=== PATIENT | male | born 1945 | race Caucasian/White ===

== ENCOUNTER → 2016-07-26 | Outpatient (CLI) | payer MEDICARE, BC ==
[~2016-07-26] MED LIST: ASPIR-LOW81 MG PO; FOLIC ACID0.8 MG PO; LOFIBRA134 MG PO; LOSARTAN POTAS100 M1 PO; LOSARTAN POTASS50 M1 PO; METOPROLOL SUC100 M1 PO; NISOLDIPINE17 MG PO; SYNTHROID,LEV175 MCG PO; TIKOSYN0.5 MG PO; WARFARIN SOD5 MG PO; WARFARIN SODIU2.5 MG PO
[2016-07-26 09:38] LABS: INTERNATIONAL NORM RATIO 2.7 (2.0-3.5)
== END | disposition home or self-care (01) ==
LOC: LAB 08:43
PROVIDERS: Internal Medicine
DX: R79.1 Abnormal coagulation profile (principal)

== ENCOUNTER → 2017-06-20 | Outpatient (CLI) | payer MEDICARE, BC ==
[2017-06-20 09:57] LABS: INTERNATIONAL NORM RATIO 2.6 (2.0-3.5)
== END | disposition home or self-care (01) ==
LOC: LAB 08:34
PROVIDERS: Internal Medicine
DX: R79.1 Abnormal coagulation profile (principal)

== ENCOUNTER → 2017-08-15 | Outpatient (CLI) | payer MEDICARE ==
[2017-08-15 12:06] LABS: INTERNATIONAL NORM RATIO 2.7 (2.0-3.5)
== END | disposition home or self-care (01) ==
LOC: LAB 11:13
PROVIDERS: Internal Medicine
DX: R79.1 Abnormal coagulation profile (principal)

== ENCOUNTER → 2017-09-19 | Outpatient (CLI) | payer MEDICARE | END | disposition home or self-care (01) | LOC: LAB 10:28 | PROVIDERS: Internal Medicine | DX: R79.1 Abnormal coagulation profile (principal) ==

== ENCOUNTER → 2017-10-31 | Outpatient (CLI) | payer MEDICARE ==
[2017-10-31 09:52] LABS: BASO # 0.1 10*3/uL (0.0-0.1); EOS # 0.2 10*3/uL (0.0-0.4); EOS % 2.3 % (1.0-4.0); HEMATOCRIT 42.3 % (42.0-52.0); HEMOGLOBIN 13.7 g/dl (14.0-18.0); LYMPH # 3.2 10*3/uL (1.3-4.4); LYMPH % 34.8 % (27.0-41.0); MEAN CELL VOLUME 85.3 fl (80.0-94.0); MEAN CORPUSCULAR HGB 27.6 pg (27.0-31.0); MEAN CORPUSCULAR HGB CONC 32.4 g/dl (33.0-37.0); MEAN PLATELET VOLUME 10.3 fl (9.6-12.3); MONO # 0.9 10*3/uL (0.1-1.0); MONO % 9.1 % (3.0-9.0); NEUT # 4.9 10*3/uL (2.3-7.9); NEUT % 52.6 % (47.0-73.0); PLATELET COUNT AUTOMATED 249 10*3/uL (130-400); RED BLOOD COUNT 4.96 10*6/uL (4.50-5.90); RED CELL DISTRI WIDTH 15.1 % (0-14.5); WHITE BLOOD COUNT 9.3 10*3/uL (4.8-10.8)
[2017-10-31 10:21] LABS: ALBUMIN 3.9 gm/dl (3.1-4.5); BUN 39 mg/dl (7-24); CHLORIDE 103 mmol/L (98-107); CHOLESTEROL 207 mg/dL (<200); CREATININE 1.31 mg/dL (0.70-1.30); POTASSIUM 4.2 mmol/L (3.5-5.1); SGOT/AST 38 IU/L (3-35); SGPT/ALT 58 U/L (12-78); SODIUM 136 mmol/L (136-145); TRIGLYCERIDES 302 mg/dl (<150); VLDL CHOLESTEROL 60 mg/dL (6-40)
[2017-10-31 10:27] LABS: ALKALINE PHOSPHATASE 75 U/L (45-117); FREE T4 1.23 ng/dl (0.76-1.46); HDL CHOLESTEROL 31 mg/dl (40-60); LDL CHOLESTEROL 116 mg/dL (9-159); THYROID STIM HORMONE (HS) 0.055 uIU/ml (0.358-4.75); TOTAL PROTEIN 7.5 gm/dL (6.4-8.2)
[2017-10-31 10:30] LABS: INTERNATIONAL NORM RATIO 2.7 (2.0-3.5)
[2017-10-31 11:00] LABS: VITAMIN D, 25-HYDROXY 23.4 ng/mL (30-100)
== END | disposition home or self-care (01) ==
LOC: LAB 09:11
PROVIDERS: Internal Medicine
DX: R53.81 Other malaise (principal); E55.9 Vitamin D deficiency, unspecified; E78.2 Mixed hyperlipidemia; E11.9 Type 2 diabetes mellitus without complications; Z13.1 Encounter for screening for diabetes mellitus; Z13.21 Encounter for screening for nutritional disorder; Z13.220 Encounter for screening for lipoid disorders; R79.1 Abnormal coagulation profile

== ENCOUNTER → 2018-01-11 | Outpatient (CLI) | payer MEDICARE ==
[2018-01-11 09:57] LABS: INTERNATIONAL NORM RATIO 3.7 (2.0-3.5)
== END | disposition home or self-care (01) ==
LOC: LAB 08:52
PROVIDERS: Internal Medicine
DX: R79.1 Abnormal coagulation profile (principal)

== ENCOUNTER → 2018-01-16 | Outpatient (CLI) | payer MEDICARE ==
[2018-01-16 09:25] LABS: INTERNATIONAL NORM RATIO 3.6 (2.0-3.5)
== END ==
LOC: LAB 08:20
PROVIDERS: Internal Medicine
DX: R79.1 Abnormal coagulation profile (principal)

== ENCOUNTER → 2018-02-27 | Outpatient (CLI) | payer MEDICARE ==
[2018-02-27 09:54] LABS: INTERNATIONAL NORM RATIO 2.4 (2.0-3.5)
== END | disposition home or self-care (01) ==
LOC: LAB 08:38
PROVIDERS: Internal Medicine
DX: R79.1 Abnormal coagulation profile (principal)

== ENCOUNTER → 2018-03-27 | Outpatient (CLI) | payer MEDICARE ==
[2018-03-27 09:59] LABS: INTERNATIONAL NORM RATIO 2.9 (2.0-3.5)
== END | disposition home or self-care (01) ==
LOC: LAB 08:56
PROVIDERS: Internal Medicine
DX: R79.1 Abnormal coagulation profile (principal)

== ENCOUNTER → 2018-04-26 | Outpatient (CLI) | payer MEDICARE ==
[2018-04-26 10:32] LABS: INTERNATIONAL NORM RATIO 2.2 (2.0-3.5)
== END | disposition home or self-care (01) ==
LOC: LAB 09:21
PROVIDERS: Internal Medicine
DX: I48.2 Chronic atrial fibrillation (principal)

== ENCOUNTER → 2018-05-01 | Outpatient (CLI) | payer MEDICARE ==
[2018-05-01 07:54] LABS: BASO # 0.1 10*3/uL (0.0-0.1); BASO % 1.1 % (0.0-1.0); EOS # 0.2 10*3/uL (0.0-0.4); EOS % 1.5 % (1.0-4.0); HEMATOCRIT 42.6 % (42.0-52.0); HEMOGLOBIN 13.8 g/dl (14.0-18.0); LYMPH # 4.6 10*3/uL (1.3-4.4); LYMPH % 43.1 % (27.0-41.0); MEAN CELL VOLUME 87.1 fl (80.0-94.0); MEAN CORPUSCULAR HGB 28.2 pg (27.0-31.0); MEAN CORPUSCULAR HGB CONC 32.4 g/dl (33.0-37.0); MEAN PLATELET VOLUME 10.3 fl (9.6-12.3); MONO # 0.9 10*3/uL (0.1-1.0); MONO % 8.8 % (3.0-9.0); NEUT # 4.8 10*3/uL (2.3-7.9); NEUT % 45.1 % (47.0-73.0); PLATELET COUNT AUTOMATED 253 10*3/uL (130-400); RED BLOOD COUNT 4.89 10*6/uL (4.50-5.90); RED CELL DISTRI WIDTH 15.1 % (0-14.5); WHITE BLOOD COUNT 10.7 10*3/uL (4.8-10.8)
[2018-05-01 08:22] LABS: ALBUMIN 3.8 gm/dl (3.1-4.5); ALKALINE PHOSPHATASE 61 U/L (45-117); BUN 40 mg/dl (7-24); CHLORIDE 108 mmol/L (98-107); CHOLESTEROL 180 mg/dL (<200); CREATININE 1.34 mg/dL (0.70-1.30); FREE T4 1.34 ng/dl (0.76-1.46); HDL CHOLESTEROL 37 mg/dl (40-60); LDL CHOLESTEROL 105 mg/dL (9-159); POTASSIUM 4.3 mmol/L (3.5-5.1); SGOT/AST 28 IU/L (3-35); SGPT/ALT 38 U/L (12-78); SODIUM 140 mmol/L (136-145); TOTAL PROTEIN 7.7 gm/dL (6.4-8.2); TRIGLYCERIDES 192 mg/dl (<150); VLDL CHOLESTEROL 38 mg/dL (6-40)
[2018-05-01 08:27] LABS: THYROID STIM HORMONE (HS) 0.116 uIU/ml (0.358-4.75)
[2018-05-01 09:02] LABS: VITAMIN D, 25-HYDROXY 40.6 ng/mL (30-100)
== END | disposition home or self-care (01) ==
LOC: LAB 07:16
PROVIDERS: Internal Medicine
DX: Z13.1 Encounter for screening for diabetes mellitus (principal); Z13.21 Encounter for screening for nutritional disorder; Z13.220 Encounter for screening for lipoid disorders; I48.2 Chronic atrial fibrillation; E55.9 Vitamin D deficiency, unspecified; R79.1 Abnormal coagulation profile; E78.2 Mixed hyperlipidemia; E11.9 Type 2 diabetes mellitus without complications

== ENCOUNTER → 2018-08-28 | Outpatient (CLI) | payer MEDICARE ==
[2018-08-28 09:17] LABS: INTERNATIONAL NORM RATIO 3.7 (2.0-3.5)
== END | disposition home or self-care (01) ==
LOC: LAB 08:42
PROVIDERS: Internal Medicine
DX: I48.2 Chronic atrial fibrillation (principal); E11.9 Type 2 diabetes mellitus without complications

== ENCOUNTER → 2018-10-30 | Outpatient (CLI) | payer MEDICARE | END | disposition home or self-care (01) | LOC: LAB 08:12 | PROVIDERS: Internal Medicine | DX: I48.2 Chronic atrial fibrillation (principal) ==

== ENCOUNTER → 2019-02-26 | Outpatient (CLI) | payer MEDICARE | END | disposition home or self-care (01) | LOC: LAB 07:47 | PROVIDERS: Internal Medicine | DX: I48.2 Chronic atrial fibrillation (principal) ==

== ENCOUNTER → 2019-05-21 | Outpatient (CLI) | payer MEDICARE | END | disposition home or self-care (01) | LOC: LAB 10:03 | PROVIDERS: Internal Medicine | DX: I48.20 Chronic atrial fibrillation, unspecified (principal) ==

== ENCOUNTER → 2019-07-24 | Outpatient (CLI) | payer MEDICARE ==
[2019-07-24 07:27] LABS: INTERNATIONAL NORM RATIO 2.1 (2.0-3.5)
== END | disposition home or self-care (01) ==
LOC: LAB 06:46
PROVIDERS: Internal Medicine
DX: Z79.01 Long term (current) use of anticoagulants (principal)

== ENCOUNTER → 2019-08-01 | Outpatient (CLI) | payer MEDICARE ==
[2019-08-01 07:54] LABS: BASO # 0.1 10*3/uL (0.0-0.1); BASO % 0.8 % (0.0-1.0); EOS # 0.2 10*3/uL (0.0-0.4); EOS % 2.2 % (1.0-4.0); HEMATOCRIT 44.3 % (42.0-52.0); HEMOGLOBIN 13.7 g/dl (14.0-18.0); LYMPH # 4.4 10*3/uL (1.3-4.4); LYMPH % 44.5 % (27.0-41.0); MEAN CELL VOLUME 89.7 fl (80.0-94.0); MEAN CORPUSCULAR HGB 27.7 pg (27.0-31.0); MEAN CORPUSCULAR HGB CONC 30.9 g/dl (33.0-37.0); MEAN PLATELET VOLUME 9.9 fl (9.6-12.3); MONO % 10.3 % (3.0-9.0); NEUT # 4.1 10*3/uL (2.3-7.9); NEUT % 41.8 % (47.0-73.0); PLATELET COUNT AUTOMATED 240 10*3/uL (130-400); RED BLOOD COUNT 4.94 10*6/uL (4.50-5.90); RED CELL DISTRI WIDTH 14.6 % (0-14.5); WHITE BLOOD COUNT 9.9 10*3/uL (4.8-10.8)
[2019-08-01 08:27] LABS: ALBUMIN 3.7 gm/dl (3.1-4.5); ALKALINE PHOSPHATASE 77 U/L (45-117); BUN 29 mg/dl (7-24); CHLORIDE 109 mmol/L (98-107); CHOLESTEROL 196 mg/dL (<200); CREATININE 1.37 mg/dL (0.70-1.30); FREE T4 1.15 ng/dl (0.76-1.46); HDL CHOLESTEROL 38 mg/dl (40-60); LDL CHOLESTEROL 104 mg/dL (9-159); POTASSIUM 4.3 mmol/L (3.5-5.1); SGOT/AST 26 IU/L (3-35); SGPT/ALT 42 U/L (12-78); SODIUM 141 mmol/L (136-145); TOTAL PROTEIN 7.3 gm/dL (6.4-8.2); TRIGLYCERIDES 268 mg/dl (<150); VLDL CHOLESTEROL 54 mg/dL (6-40)
[2019-08-01 08:32] LABS: THYROID STIM HORMONE (HS) 0.054 uIU/ml (0.358-4.75)
[2019-08-01 10:34] LABS: VITAMIN D, 25-HYDROXY 34.3 ng/mL (30-100)
== END | disposition home or self-care (01) ==
LOC: LAB 07:35
PROVIDERS: Internal Medicine
DX: I10 Essential (primary) hypertension (principal); E11.9 Type 2 diabetes mellitus without complications; E55.9 Vitamin D deficiency, unspecified; E03.9 Hypothyroidism, unspecified

== ENCOUNTER → 2020-01-27 | Outpatient (CLI) | payer MEDICARE ==
[2020-01-27 09:54] LABS: INTERNATIONAL NORM RATIO 2.4 (2.0-3.5)
== END | disposition home or self-care (01) ==
LOC: LAB 08:56
PROVIDERS: Internal Medicine
DX: Z79.01 Long term (current) use of anticoagulants (principal)

== ENCOUNTER → 2020-03-26 | Outpatient (CLI) | payer MEDICARE ==
[2020-03-26 09:57] LABS: BASO # 0.1 10*3/uL (0.0-0.1); BASO % 0.8 % (0.0-1.0); EOS # 0.2 10*3/uL (0.0-0.4); EOS % 2.3 % (1.0-4.0); HEMATOCRIT 43.6 % (42.0-52.0); LYMPH # 3.5 10*3/uL (1.3-4.4); LYMPH % 36.7 % (27.0-41.0); MEAN CORPUSCULAR HGB 27.3 pg (27.0-31.0); MEAN CORPUSCULAR HGB CONC 30.7 g/dl (33.0-37.0); MEAN PLATELET VOLUME 10.3 fl (9.6-12.3); MONO % 10.7 % (3.0-9.0); NEUT # 4.6 10*3/uL (2.3-7.9); NEUT % 49.2 % (47.0-73.0); PLATELET COUNT AUTOMATED 254 10*3/uL (130-400); RED CELL DISTRI WIDTH 14.9 % (0-14.5); WHITE BLOOD COUNT 9.4 10*3/uL (4.8-10.8)
[2020-03-26 10:16] LABS: ALBUMIN 3.8 gm/dl (3.1-4.5); CREATININE 1.51 mg/dL (0.70-1.30); FREE T4 1.38 ng/dl (0.76-1.46); POTASSIUM 4.5 mmol/L (3.5-5.1)
[2020-03-26 10:20] LABS: THYROID STIM HORMONE (HS) 0.036 uIU/ml (0.358-4.75)
[2020-03-26 10:34] LABS: VITAMIN D, 25-HYDROXY 41.5 ng/mL (30-100)
== END | disposition home or self-care (01) ==
LOC: LAB 08:50
PROVIDERS: ATTEND Internal Medicine
DX: I10 Essential (primary) hypertension (principal); E11.9 Type 2 diabetes mellitus without complications; E03.9 Hypothyroidism, unspecified; E78.2 Mixed hyperlipidemia; E55.9 Vitamin D deficiency, unspecified; Z00.00 Encounter for general adult medical examination without abnormal findings; Z79.01 Long term (current) use of anticoagulants

== ENCOUNTER → 2020-04-16 | Outpatient (CLI) | payer MEDICARE | END | disposition home or self-care (01) | LOC: US 10:14 | PROVIDERS: ATTEND Internal Medicine | DX: N28.1 Cyst of kidney, acquired (principal) ==

== ENCOUNTER → 2021-01-04 | Outpatient (CLI) | payer MEDICARE ==
[2021-01-04 10:10] LABS: INTERNATIONAL NORM RATIO 2.5 (2.0-3.5)
== END | disposition home or self-care (01) ==
LOC: LAB 09:10
PROVIDERS: ATTEND Internal Medicine
DX: I48.21 Permanent atrial fibrillation (principal)

== ENCOUNTER → 2021-03-11 | Outpatient (CLI) | payer MEDICARE ==
[2021-03-11 08:52] LABS: BASO # 0.1 10*3/uL (0.0-0.1); BASO % 0.7 % (0.0-1.0); EOS # 0.3 10*3/uL (0.0-0.4); EOS % 2.4 % (1.0-4.0); LYMPH # 4.1 10*3/uL (1.3-4.4); LYMPH % 37.5 % (27.0-41.0); MEAN CORPUSCULAR HGB CONC 32.2 g/dl (33.0-37.0); MEAN PLATELET VOLUME 10.1 fl (9.6-12.3); MONO # 1.1 10*3/uL (0.1-1.0); MONO % 9.5 % (3.0-9.0); NEUT # 5.5 10*3/uL (2.3-7.9); NEUT % 49.5 % (47.0-73.0); PLATELET COUNT AUTOMATED 245 10*3/uL (130-400); RED BLOOD COUNT 4.71 10*6/uL (4.50-5.90); RED CELL DISTRI WIDTH 14.6 % (0-14.5)
[2021-03-11 09:06] LABS: INTERNATIONAL NORM RATIO 2.6 (2.0-3.5)
[2021-03-11 09:27] LABS: ALBUMIN 3.6 gm/dl (3.1-4.5); CREATININE 1.53 mg/dL (0.70-1.30); FREE T4 1.28 ng/dl (0.76-1.46); POTASSIUM 4.1 mmol/L (3.5-5.1); TOTAL PROTEIN 7.7 gm/dL (6.4-8.2)
[2021-03-11 09:42] LABS: THYROID STIM HORMONE (HS) 0.104 uIU/ml (0.358-4.75)
[2021-03-11 09:57] LABS: VITAMIN D, 25-HYDROXY 43.9 ng/mL (30-100)
== END | disposition home or self-care (01) ==
LOC: LAB 08:33
PROVIDERS: ATTEND Internal Medicine
DX: Z12.5 Encounter for screening for malignant neoplasm of prostate (principal); I48.21 Permanent atrial fibrillation; I10 Essential (primary) hypertension; E11.9 Type 2 diabetes mellitus without complications; E03.9 Hypothyroidism, unspecified; E55.9 Vitamin D deficiency, unspecified; E78.2 Mixed hyperlipidemia

== ENCOUNTER → 2021-08-30 | Outpatient (CLI) | payer MEDICARE ==
[2021-08-30 13:50] LABS: INTERNATIONAL NORM RATIO 2.9 (2.0-3.5)
== END | disposition home or self-care (01) ==
LOC: LAB 13:23
PROVIDERS: ATTEND Internal Medicine
DX: I48.21 Permanent atrial fibrillation (principal)

== ENCOUNTER → 2021-09-21 | Outpatient (CLI) | payer MEDICARE | END | disposition home or self-care (01) | LOC: RAD 11:25 | PROVIDERS: ATTEND Internal Medicine | DX: R06.02 Shortness of breath (principal); M51.34 Other intervertebral disc degeneration, thoracic region ==

== ENCOUNTER → 2021-09-28 | Outpatient (CLI) | payer MEDICARE | END | disposition home or self-care (01) | LOC: LAB 13:05 | PROVIDERS: ATTEND Internal Medicine | DX: I48.21 Permanent atrial fibrillation (principal) ==

== ENCOUNTER → 2021-09-30 | Outpatient (CLI) | payer MEDICARE ==
[2021-09-30 10:43] LABS: INTERNATIONAL NORM RATIO 3.3 (2.0-3.5)
== END | disposition home or self-care (01) ==
LOC: LAB 10:13
PROVIDERS: ATTEND Internal Medicine
DX: I48.21 Permanent atrial fibrillation (principal)

== ENCOUNTER → 2021-10-14 | Outpatient (CLI) | payer MEDICARE ==
[2021-10-14 12:15] LABS: INTERNATIONAL NORM RATIO 2.8 (2.0-3.5)
== END | disposition home or self-care (01) ==
LOC: LAB 11:42
PROVIDERS: ATTEND Internal Medicine
DX: I48.21 Permanent atrial fibrillation (principal)

== ENCOUNTER → 2021-12-07 | Outpatient (CLI) | payer MEDICARE ==
[2021-12-07 10:31] LABS: INTERNATIONAL NORM RATIO 2.4 (2.0-3.5)
== END ==
LOC: LAB 10:04
PROVIDERS: ATTEND Internal Medicine
DX: I48.21 Permanent atrial fibrillation (principal)

== ENCOUNTER → 2022-01-25 | Outpatient (CLI) | payer MEDICARE ==
[2022-01-25 12:25] LABS: INTERNATIONAL NORM RATIO 2.5 (2.0-3.5)
== END | disposition home or self-care (01) ==
LOC: LAB 11:52
PROVIDERS: ATTEND Internal Medicine
DX: I48.21 Permanent atrial fibrillation (principal)

== ENCOUNTER → 2022-02-04 | Outpatient (CLI) | payer MEDICARE ==
[2022-02-04 10:14] LABS: BASO # 0.1 10*3/uL (0.0-0.1); BASO % 0.7 % (0.0-1.0); EOS # 0.2 10*3/uL (0.0-0.4); EOS % 1.8 % (1.0-4.0); HEMATOCRIT 40.2 % (42.0-52.0); LYMPH # 3.5 10*3/uL (1.3-4.4); LYMPH % 37.2 % (27.0-41.0); MEAN CELL VOLUME 91.2 fl (80.0-94.0); MEAN CORPUSCULAR HGB 29.3 pg (27.0-31.0); MEAN CORPUSCULAR HGB CONC 32.1 g/dl (33.0-37.0); MONO # 0.8 10*3/uL (0.1-1.0); MONO % 8.6 % (3.0-9.0); NEUT # 4.9 10*3/uL (2.3-7.9); NEUT % 51.4 % (47.0-73.0); PLATELET COUNT AUTOMATED 232 10*3/uL (130-400); RED BLOOD COUNT 4.41 10*6/uL (4.50-5.90); RED CELL DISTRI WIDTH 15.2 % (0-14.5); WHITE BLOOD COUNT 9.5 10*3/uL (4.8-10.8)
[2022-02-04 10:32] LABS: CREATININE 1.53 mg/dL (0.70-1.30); POTASSIUM 4.9 mmol/L (3.5-5.1); TOTAL PROTEIN 7.8 gm/dL (6.4-8.2)
[2022-02-04 10:37] LABS: FREE T4 1.55 ng/dl (0.76-1.46); THYROID STIM HORMONE (HS) 0.038 uIU/ml (0.358-4.75)
[2022-02-04 11:33] LABS: VITAMIN D, 25-HYDROXY 39.5 ng/mL (30-100)
== END ==
LOC: LAB 09:56
PROVIDERS: ATTEND Internal Medicine
DX: Z12.5 Encounter for screening for malignant neoplasm of prostate (principal); Z13.89 Encounter for screening for other disorder; Z13.0 Encounter for screening for diseases of the blood and blood-forming organs and certain disorders involving the immune mechanism; E03.9 Hypothyroidism, unspecified; E11.9 Type 2 diabetes mellitus without complications; E55.9 Vitamin D deficiency, unspecified; Z13.21 Encounter for screening for nutritional disorder; Z13.220 Encounter for screening for lipoid disorders; Z13.228 Encounter for screening for other metabolic disorders; Z13.29 Encounter for screening for other suspected endocrine disorder; Z13.6 Encounter for screening for cardiovascular disorders; Z13.9 Encounter for screening, unspecified

== ENCOUNTER 2022-03-01 12:07 | Inpatient (IN) | payer MEDICARE ==
[~2022-03-01] VITALS: Ht 154.9 cm; Wt 113.9 kg
[2022-03-01 12:16] VITALS: BP 113/66
[2022-03-01 12:48] LABS: BASO # 0.1 10*3/uL (0.0-0.1); BASO % 0.7 % (0.0-1.0); EOS # 0.1 10*3/uL (0.0-0.4); EOS % 1.5 % (1.0-4.0); HEMATOCRIT 46.2 % (42.0-52.0); LYMPH # 3.3 10*3/uL (1.3-4.4); LYMPH % 37.1 % (27.0-41.0); MEAN CELL VOLUME 86.7 fl (80.0-94.0); MEAN CORPUSCULAR HGB 28.7 pg (27.0-31.0); MEAN CORPUSCULAR HGB CONC 33.1 g/dl (33.0-37.0); MEAN PLATELET VOLUME 10.5 fl (9.6-12.3); MONO % 11.3 % (3.0-9.0); NEUT # 4.3 10*3/uL (2.3-7.9); NEUT % 49.1 % (47.0-73.0); PLATELET COUNT AUTOMATED 289 10*3/uL (130-400); RED BLOOD COUNT 5.33 10*6/uL (4.50-5.90); RED CELL DISTRI WIDTH 14.7 % (0-14.5); WHITE BLOOD COUNT 8.8 10*3/uL (4.8-10.8)
[2022-03-01 12:59] LABS: ACT PARTIAL THROMBO TIME 29.3 SECONDS (20.0-32.1); INTERNATIONAL NORM RATIO 1.2 (2.0-3.5)
[2022-03-01] MEDS ORDERED: Metolazone5 MG PO (13:03)
[2022-03-01] MEDS ORDERED: ELIQUIS5 M1 PO (13:03)
[2022-03-01] MEDS ORDERED: TORSEMIDE20 MG PO (13:03)
[2022-03-01] MEDS ORDERED: GLIPIZIDE5 MG PO (13:04)
[2022-03-01] MEDS ORDERED: ENTRESTO 24 MG1 EACH PO (13:05)
[2022-03-01 13:21] LABS: CREATININE 2.82 mg/dL (0.70-1.30); POTASSIUM 3.5 mmol/L (3.5-5.1); TOTAL PROTEIN 8.4 gm/dL (6.4-8.2)
[2022-03-01 14:02] LABS: BILIRUBIN Negative (Negative); BLOOD Negative (Negative); CLARITY Clear (Clear); COLOR Yellow (Yellow); GLUCOSE Negative (Negative); KETONE Negative (Negative); LEUKO ESTERASE Negative (Negative); NITRITE Negative (Negative); PH 5.5 (4.5-8.0); UROBILINOGEN 0.2 E.U./dl (0.0-1.0)
[2022-03-01 14:11] LABS: MUCOUS 1+; RBC 0-2 rbc/hpf (0-2)
[2022-03-01 16:47] VITALS: BP 130/79
[2022-03-01 20:00] VITALS: BP 131/79
[2022-03-02] VITALS: BP 109/64
[2022-03-02 06:29] LABS: BASO # 0.1 10*3/uL (0.0-0.1); BASO % 0.8 % (0.0-1.0); EOS # 0.2 10*3/uL (0.0-0.4); EOS % 2.6 % (1.0-4.0); HEMATOCRIT 44.9 % (42.0-52.0); LYMPH # 2.9 10*3/uL (1.3-4.4); LYMPH % 33.1 % (27.0-41.0); MEAN CELL VOLUME 87.7 fl (80.0-94.0); MEAN CORPUSCULAR HGB 28.3 pg (27.0-31.0); MEAN CORPUSCULAR HGB CONC 32.3 g/dl (33.0-37.0); MEAN PLATELET VOLUME 10.9 fl (9.6-12.3); MONO # 1.2 10*3/uL (0.1-1.0); MONO % 13.3 % (3.0-9.0); NEUT # 4.4 10*3/uL (2.3-7.9); NEUT % 49.9 % (47.0-73.0); PLATELET COUNT AUTOMATED 255 10*3/uL (130-400); RED BLOOD COUNT 5.12 10*6/uL (4.50-5.90); RED CELL DISTRI WIDTH 14.7 % (0-14.5); WHITE BLOOD COUNT 8.8 10*3/uL (4.8-10.8)
[2022-03-02 06:45] LABS: CREATININE 2.28 mg/dL (0.70-1.30); TOTAL PROTEIN 7.6 gm/dL (6.4-8.2)
[2022-03-02 08:00] VITALS: BP 134/74
[2022-03-02 12:00] VITALS: BP 99/61
[2022-03-02 20:00] VITALS: BP 129/68
[2022-03-03] VITALS: BP 114/51
[2022-03-03 08:00] VITALS: BP 110/64
[2022-03-03 08:11] LABS: CREATININE 1.9 mg/dL (0.70-1.30)
[2022-03-03 12:00] VITALS: BP 114/70
[2022-03-03 16:00] VITALS: BP 121/71
[2022-03-03 20:00] VITALS: BP 121/63
[2022-03-04] VITALS: BP 108/47; BP 110/58
[2022-03-04 05:47] LABS: CREATININE 1.66 mg/dL (0.70-1.30)
[2022-03-04] MEDS ORDERED: SOAANZ20 MG PO (07:01)
[2022-03-04] MEDS ORDERED: ALDACTONE25 M1 PO (07:01)
[2022-03-04] MEDS ORDERED: IMDUR SA30 MG PO (07:01)
[2022-03-04] MEDS ORDERED: METOPROLOL SUCC25 M2 PO (07:01)
[2022-03-04 08:00] VITALS: BP 120/67
== END 2022-03-04 09:44 | disposition home or self-care (01) | DRG 640 ==
LOC: ED 12:07 → EDHOLD 13:48 → 5E 13:48
PROVIDERS: Emergency Medicine; ADMIT Internal Medicine; ATTEND Internal Medicine
DX: E87.6 Hypokalemia (principal); N17.0 Acute kidney failure with tubular necrosis; I48.21 Permanent atrial fibrillation; I13.0 Hypertensive heart and chronic kidney disease with heart failure and stage 1 through stage 4 chronic kidney disease, or unspecified chronic kidney disease; I42.9 Cardiomyopathy, unspecified; I50.20 Unspecified systolic (congestive) heart failure; E86.0 Dehydration; Z96.653 Presence of artificial knee joint, bilateral; E03.9 Hypothyroidism, unspecified; M19.90 Unspecified osteoarthritis, unspecified site; E87.8 Other disorders of electrolyte and fluid balance, not elsewhere classified; T50.2X5A Adverse effect of carbonic-anhydrase inhibitors, benzothiadiazides and other diuretics, initial encounter; E11.22 Type 2 diabetes mellitus with diabetic chronic kidney disease; Z79.01 Long term (current) use of anticoagulants; Z88.5 Allergy status to narcotic agent; Z88.6 Allergy status to analgesic agent; Z79.899 Other long term (current) drug therapy; Z88.8 Allergy status to other drugs, medicaments and biological substances; Z95.810 Presence of automatic (implantable) cardiac defibrillator; Y92.89 Other specified places as the place of occurrence of the external cause; I11.0 Hypertensive heart disease with heart failure

== ENCOUNTER → 2022-03-08 | Outpatient (CLI) | payer MEDICARE ==
[~2022-03-08] MED LIST changes: +ALDACTONE25 M1 PO; +ELIQUIS5 M1 PO; +ENTRESTO 24 MG1 EACH PO; +GLIPIZIDE5 MG PO; +IMDUR SA30 MG PO; +METOPROLOL SUCC25 M2 PO; +Metolazone5 MG PO; +SOAANZ20 MG PO; +TORSEMIDE20 MG PO
[2022-03-08 12:34] LABS: CREATININE 2.72 mg/dL (0.70-1.30)
== END | disposition home or self-care (01) ==
LOC: LAB 11:50
PROVIDERS: ATTEND Internal Medicine
DX: N17.9 Acute kidney failure, unspecified (principal)

== ENCOUNTER → 2022-03-14 | Outpatient (CLI) | payer MEDICARE ==
[2022-03-14 12:09] LABS: BASO # 0.1 10*3/uL (0.0-0.1); BASO % 0.7 % (0.0-1.0); EOS # 0.2 10*3/uL (0.0-0.4); EOS % 1.9 % (1.0-4.0); HEMATOCRIT 43.1 % (42.0-52.0); LYMPH # 3.1 10*3/uL (1.3-4.4); LYMPH % 32.4 % (27.0-41.0); MEAN CELL VOLUME 89.2 fl (80.0-94.0); MEAN CORPUSCULAR HGB CONC 32.5 g/dl (33.0-37.0); MONO % 10.6 % (3.0-9.0); NEUT # 5.2 10*3/uL (2.3-7.9); PLATELET COUNT AUTOMATED 199 10*3/uL (130-400); RED BLOOD COUNT 4.83 10*6/uL (4.50-5.90); RED CELL DISTRI WIDTH 14.6 % (0-14.5); WHITE BLOOD COUNT 9.6 10*3/uL (4.8-10.8)
[2022-03-14 12:32] LABS: CREATININE 1.75 mg/dL (0.70-1.30); FREE T4 1.47 ng/dl (0.76-1.46); POTASSIUM 3.7 mmol/L (3.5-5.1); TOTAL PROTEIN 8.1 gm/dL (6.4-8.2)
[2022-03-14 12:37] LABS: THYROID STIM HORMONE (HS) 0.057 uIU/ml (0.358-4.75)
[2022-03-14 12:55] LABS: VITAMIN D, 25-HYDROXY 31.2 ng/mL (30-100)
== END | disposition home or self-care (01) ==
LOC: LAB 10:49
PROVIDERS: ATTEND Internal Medicine
DX: E55.9 Vitamin D deficiency, unspecified (principal); D51.9 Vitamin B12 deficiency anemia, unspecified; E03.9 Hypothyroidism, unspecified; R53.81 Other malaise; R79.89 Other specified abnormal findings of blood chemistry; D52.9 Folate deficiency anemia, unspecified; Z13.0 Encounter for screening for diseases of the blood and blood-forming organs and certain disorders involving the immune mechanism; Z13.21 Encounter for screening for nutritional disorder; Z13.220 Encounter for screening for lipoid disorders; Z13.228 Encounter for screening for other metabolic disorders; Z13.6 Encounter for screening for cardiovascular disorders; Z13.89 Encounter for screening for other disorder

== ENCOUNTER → 2022-05-12 | Outpatient (CLI) | payer MEDICARE | END | disposition home or self-care (01) | LOC: US 00:13 | PROVIDERS: ATTEND Internal Medicine | DX: I65.23 Occlusion and stenosis of bilateral carotid arteries (principal) ==

== ENCOUNTER → 2022-10-13 | Outpatient (CLI) | payer MEDICARE ==
[2022-10-13 09:18] LABS: BASO # 0.1 10*3/uL (0.0-0.1); BASO % 0.8 % (0.0-1.0); EOS # 0.2 10*3/uL (0.0-0.4); EOS % 2.2 % (1.0-4.0); HEMATOCRIT 43.6 % (42.0-52.0); LYMPH # 3.4 10*3/uL (1.3-4.4); LYMPH % 36.7 % (27.0-41.0); MEAN CELL VOLUME 87.6 fl (80.0-94.0); MEAN CORPUSCULAR HGB 29.3 pg (27.0-31.0); MEAN CORPUSCULAR HGB CONC 33.5 g/dl (33.0-37.0); MONO # 0.8 10*3/uL (0.1-1.0); NEUT # 4.7 10*3/uL (2.3-7.9); NEUT % 50.9 % (47.0-73.0); PLATELET COUNT AUTOMATED 254 10*3/uL (130-400); RED BLOOD COUNT 4.98 10*6/uL (4.50-5.90); RED CELL DISTRI WIDTH 14.6 % (0-14.5); WHITE BLOOD COUNT 9.2 10*3/uL (4.8-10.8)
[2022-10-13 09:28] LABS: ACT PARTIAL THROMBO TIME 31.2 SECONDS (20.0-32.1); INTERNATIONAL NORM RATIO 1.1 (2.0-3.5)
[2022-10-13 09:54] LABS: POTASSIUM 4.1 mmol/L (3.4-5.1); TOTAL PROTEIN 7.7 gm/dL (6.0-8.0)
== END | disposition home or self-care (01) ==
LOC: LAB 08:35
PROVIDERS: ATTEND Urology
DX: Z01.818 Encounter for other preprocedural examination (principal); I51.7 Cardiomegaly

== ENCOUNTER → 2022-11-17 | Outpatient (CLI) | payer MEDICARE | END | disposition home or self-care (01) | LOC: LAB 09:52 | PROVIDERS: ATTEND Urology | DX: Z12.5 Encounter for screening for malignant neoplasm of prostate (principal); R53.83 Other fatigue ==

== ENCOUNTER → 2022-12-06 | Outpatient (CLI) | payer MEDICARE | END | disposition home or self-care (01) | LOC: US 02:21 | PROVIDERS: ATTEND Urology | DX: N28.1 Cyst of kidney, acquired (principal); N28.89 Other specified disorders of kidney and ureter; I10 Essential (primary) hypertension ==

== ENCOUNTER → 2022-12-12 | Outpatient (CLI) | payer MEDICARE ==
[~2022-12-12] MED LIST changes: +GLIPIZIDE10 M2 PO; +KAPSPARGO SPRI100 MG PO; +LEVOTHYROXINE200 MC2 PO
== END | disposition home or self-care (01) ==
LOC: RAD 10:57
PROVIDERS: ATTEND Internal Medicine
DX: R05.9 Cough, unspecified (principal); I51.7 Cardiomegaly; Z95.810 Presence of automatic (implantable) cardiac defibrillator

== ENCOUNTER 2022-12-15 12:42 | Inpatient (IN) | payer MEDICARE ==
[~2022-12-15] VITALS: Ht 180.3 cm; Wt 125.0 kg
[~2022-12-15 12:42] MED LIST changes: -GLIPIZIDE10 M2 PO; -KAPSPARGO SPRI100 MG PO; -LEVOTHYROXINE200 MC2 PO
[2022-12-15 13:02] VITALS: BP 124/66
[2022-12-15 16:13] LABS: BASO # 0.1 10*3/uL (0.0-0.1); BASO % 0.6 % (0.0-1.0); EOS # 0.3 10*3/uL (0.0-0.4); EOS % 2.3 % (1.0-4.0); HEMATOCRIT 42.8 % (42.0-52.0); LYMPH # 3.7 10*3/uL (1.3-4.4); LYMPH % 31.7 % (27.0-41.0); MEAN CELL VOLUME 87.9 fl (80.0-94.0); MEAN CORPUSCULAR HGB 28.3 pg (27.0-31.0); MEAN CORPUSCULAR HGB CONC 32.2 g/dl (33.0-37.0); MEAN PLATELET VOLUME 9.5 fl (9.6-12.3); MONO # 1.1 10*3/uL (0.1-1.0); NEUT # 6.6 10*3/uL (2.3-7.9); PLATELET COUNT AUTOMATED 304 10*3/uL (130-400); RED BLOOD COUNT 4.87 10*6/uL (4.50-5.90); RED CELL DISTRI WIDTH 14.8 % (0-14.5); WHITE BLOOD COUNT 11.7 10*3/uL (4.8-10.8)
[2022-12-15 16:24] LABS: ACT PARTIAL THROMBO TIME 31.9 SECONDS (20.0-32.1); INTERNATIONAL NORM RATIO 1.1 (2.0-3.5)
[2022-12-15 16:41] LABS: POTASSIUM 3.8 mmol/L (3.4-5.1); TOTAL PROTEIN 7.9 gm/dL (6.0-8.0)
[2022-12-15] MEDS ORDERED: GLIPIZIDE10 M2 PO (19:05)
[2022-12-15] MEDS ORDERED: LEVOTHYROXINE200 MC2 PO (19:05)
[2022-12-15] MEDS ORDERED: ENTRESTO 24 MG1 EACH PO (19:05)
[2022-12-15] MEDS ORDERED: KAPSPARGO SPRI100 MG PO (19:06)
[2022-12-15 22:51] VITALS: BP 112/65
[2022-12-15 22:59] VITALS: BP 116/59
[2022-12-16 05:42] VITALS: BP 110/61
[2022-12-16 06:59] LABS: POTASSIUM 3.4 mmol/L (3.4-5.1)
[2022-12-16 11:39] VITALS: BP 106/67
[2022-12-16 14:11] VITALS: BP 112/70
[2022-12-16 15:20] VITALS: BP 104/57
[2022-12-16 16:00] VITALS: BP 104/57
[2022-12-16 20:00] VITALS: BP 130/101
[2022-12-17] VITALS: BP 126/94
[2022-12-17 06:25] LABS: BASO # 0.1 10*3/uL (0.0-0.1); BASO % 0.6 % (0.0-1.0); EOS # 0.3 10*3/uL (0.0-0.4); EOS % 2.9 % (1.0-4.0); HEMATOCRIT 38.2 % (42.0-52.0); LYMPH # 2.9 10*3/uL (1.3-4.4); LYMPH % 31.1 % (27.0-41.0); MEAN CELL VOLUME 88.4 fl (80.0-94.0); MEAN CORPUSCULAR HGB 28.9 pg (27.0-31.0); MEAN CORPUSCULAR HGB CONC 32.7 g/dl (33.0-37.0); MEAN PLATELET VOLUME 9.8 fl (9.6-12.3); MONO % 10.2 % (3.0-9.0); NEUT # 5.1 10*3/uL (2.3-7.9); NEUT % 54.9 % (47.0-73.0); PLATELET COUNT AUTOMATED 269 10*3/uL (130-400); RED BLOOD COUNT 4.32 10*6/uL (4.50-5.90); RED CELL DISTRI WIDTH 14.8 % (0-14.5); WHITE BLOOD COUNT 9.3 10*3/uL (4.8-10.8)
[2022-12-17 07:57] LABS: POTASSIUM 3.3 mmol/L (3.4-5.1)
[2022-12-17 08:00] VITALS: BP 137/73
[2022-12-17 08:58] LABS: POTASSIUM 3.7 mmol/L (3.4-5.1)
[2022-12-17 12:00] VITALS: BP 119/67
[2022-12-17 16:00] VITALS: BP 136/68
[2022-12-17 18:06] LABS: BILIRUBIN Negative (Negative); BLOOD Negative (Negative); CLARITY Clear (Clear); COLOR Yellow (Yellow); GLUCOSE 3+ (Negative); KETONE Negative (Negative); LEUKO ESTERASE Negative (Negative); NITRITE Negative (Negative); UROBILINOGEN 0.2 E.U./dl (0.0-1.0)
[2022-12-17 18:30] LABS: MUCOUS TRACE
[2022-12-17 20:00] VITALS: BP 122/96
[2022-12-18] VITALS: BP 128/64
[2022-12-18 07:20] LABS: BASO # 0.1 10*3/uL (0.0-0.1); BASO % 0.8 % (0.0-1.0); EOS # 0.1 10*3/uL (0.0-0.4); EOS % 1.1 % (1.0-4.0); HEMATOCRIT 40.9 % (42.0-52.0); LYMPH # 3.3 10*3/uL (1.3-4.4); LYMPH % 27.2 % (27.0-41.0); MEAN CELL VOLUME 89.5 fl (80.0-94.0); MEAN CORPUSCULAR HGB 29.1 pg (27.0-31.0); MEAN CORPUSCULAR HGB CONC 32.5 g/dl (33.0-37.0); MEAN PLATELET VOLUME 9.6 fl (9.6-12.3); MONO # 1.2 10*3/uL (0.1-1.0); MONO % 9.8 % (3.0-9.0); NEUT # 7.5 10*3/uL (2.3-7.9); NEUT % 60.7 % (47.0-73.0); PLATELET COUNT AUTOMATED 290 10*3/uL (130-400); RED BLOOD COUNT 4.57 10*6/uL (4.50-5.90); RED CELL DISTRI WIDTH 14.8 % (0-14.5); WHITE BLOOD COUNT 12.3 10*3/uL (4.8-10.8)
[2022-12-18 07:55] LABS: POTASSIUM 3.9 mmol/L (3.4-5.1)
[2022-12-18 08:00] VITALS: BP 148/65
[2022-12-18 12:00] VITALS: BP 131/57
[2022-12-18 16:00] VITALS: BP 119/51
[2022-12-18 20:00] VITALS: BP 133/77
[2022-12-19] VITALS: BP 124/66
[2022-12-19 07:02] LABS: BASO # 0.1 10*3/uL (0.0-0.1); EOS # 0.3 10*3/uL (0.0-0.4); HEMATOCRIT 39.3 % (42.0-52.0); LYMPH # 2.7 10*3/uL (1.3-4.4); LYMPH % 28.8 % (27.0-41.0); MEAN CELL VOLUME 88.5 fl (80.0-94.0); MEAN CORPUSCULAR HGB 28.4 pg (27.0-31.0); MEAN CORPUSCULAR HGB CONC 32.1 g/dl (33.0-37.0); MEAN PLATELET VOLUME 9.8 fl (9.6-12.3); MONO # 0.9 10*3/uL (0.1-1.0); NEUT # 5.5 10*3/uL (2.3-7.9); PLATELET COUNT AUTOMATED 276 10*3/uL (130-400); RED BLOOD COUNT 4.44 10*6/uL (4.50-5.90); RED CELL DISTRI WIDTH 14.8 % (0-14.5); WHITE BLOOD COUNT 9.5 10*3/uL (4.8-10.8)
[2022-12-19 07:27] LABS: POTASSIUM 3.5 mmol/L (3.4-5.1)
[2022-12-19 08:00] VITALS: BP 127/54
[2022-12-19] MEDS ORDERED: MUCINEX DM 30/61 TAB PO (10:58)
[2022-12-19 12:00] VITALS: BP 106/54
== END 2022-12-19 12:02 | disposition home or self-care (01) | DRG 291 ==
LOC: ED 12:42 → EDHOLD 18:37 → 4E 18:37 → EDHOLD 12-16 03:33 → 4E 12-16 14:04
PROVIDERS: Emergency Medicine; Internal Medicine Cardiovascular Disease; Internal Medicine Nephrology; ADMIT Internal Medicine; ATTEND Internal Medicine
DX: I13.0 Hypertensive heart and chronic kidney disease with heart failure and stage 1 through stage 4 chronic kidney disease, or unspecified chronic kidney disease (principal); I50.23 Acute on chronic systolic (congestive) heart failure; N17.9 Acute kidney failure, unspecified; I48.21 Permanent atrial fibrillation; Z96.651 Presence of right artificial knee joint; E66.09 Other obesity due to excess calories; I25.5 Ischemic cardiomyopathy; I48.0 Paroxysmal atrial fibrillation; E89.0 Postprocedural hypothyroidism; N18.31 Chronic kidney disease, stage 3a; E11.22 Type 2 diabetes mellitus with diabetic chronic kidney disease; E87.6 Hypokalemia; E11.65 Type 2 diabetes mellitus with hyperglycemia; Z95.810 Presence of automatic (implantable) cardiac defibrillator; Z95.1 Presence of aortocoronary bypass graft; Z79.84 Long term (current) use of oral hypoglycemic drugs; Z88.5 Allergy status to narcotic agent; Z68.37 Body mass index [BMI] 37.0-37.9, adult

== ENCOUNTER → 2023-02-21 | Outpatient (CLI) | payer MEDICARE ==
[~2023-02-21] MED LIST changes: +GLIPIZIDE10 M2 PO; +KAPSPARGO SPRI100 MG PO; +LEVOTHYROXINE200 MC2 PO; +MUCINEX DM 30/61 TAB PO
== END | disposition home or self-care (01) ==
LOC: RAD 12:17
PROVIDERS: ATTEND Internal Medicine
DX: M16.12 Unilateral primary osteoarthritis, left hip (principal)

== ENCOUNTER → 2023-05-18 | Outpatient (CLI) | payer MEDICARE | END | disposition home or self-care (01) | LOC: LAB 11:36 | PROVIDERS: ATTEND Internal Medicine | DX: E11.65 Type 2 diabetes mellitus with hyperglycemia (principal) ==

== ENCOUNTER → 2023-10-12 | Outpatient (CLI) | payer MEDICARE ==
[~2023-10-12] MED LIST changes: +COLACE CLEAR50 MG PO; +FARXIGA5 M1 PO; +FLAXSEED1000 MG PO; +LANTUS SOL100 UNIT/1 SC
[2023-10-12 11:48] LABS: POTASSIUM 5.2 mmol/L (3.4-5.1)
== END | disposition home or self-care (01) ==
LOC: LAB 10:56
DX: I50.23 Acute on chronic systolic (congestive) heart failure (principal)

== ENCOUNTER → 2024-02-12 | Outpatient (CLI) | payer MEDICARE ==
[2024-02-12 16:50] LABS: POTASSIUM 4.3 mmol/L (3.4-5.1)
== END | disposition home or self-care (01) ==
LOC: LAB 16:09
PROVIDERS: ATTEND Internal Medicine
DX: I50.22 Chronic systolic (congestive) heart failure (principal)

== ENCOUNTER → 2024-12-05 | Outpatient (CLI) | payer MEDICARE | END | disposition home or self-care (01) | LOC: RAD 13:33 | PROVIDERS: ATTEND Internal Medicine | DX: R06.02 Shortness of breath (principal); M47.814 Spondylosis without myelopathy or radiculopathy, thoracic region; I51.7 Cardiomegaly ==